=== PATIENT | male | born 1950 | race Caucasian/White ===

== ENCOUNTER 2021-11-12 13:28 | Emergency (ER) | payer MEDICARE ==
[2021-11-12 14:08] LABS: BASOPHIL 0.2 % (0-2); EOSINOPHIL 0 % (0-7); HCT 45.9 % (42.0-52.0); HGB 15.6 g/dl (13.2-18.0); LYMPHOCYTE 4.3 % (15-48); MCH 28.9 pg (25.0-31.0); MCV 85.2 fL (78.0-100.0); MONOCYTE 10.8 % (0-12); MPV 9.3 fL (6.0-9.5); NEUTROPHIL 84.3 % (41-80); NRBC 0; PLT 465 K/uL (150-400); RBC 5.39 M/uL (4.70-6.00); RDW 13.9 % (11.5-14.0)
[2021-11-12 14:17] LABS: ALBUMIN 2.9 g/dL (3.4-5.0); BILIRUBIN - TOTAL 2.8 mg/dL (0.2-1.0); BUN/CREAT RATIO (CALC) 8.3 RATIO; CREATININE 2.04 mg/dL (0.67-1.17); GLOBULIN (CALCULATION) 4.1 g/dL; POTASSIUM 5.5 mmol/L (3.5-5.1)
[2021-11-12 15:46] LABS: CORONAVIRUS 2019 SARS-COV-2 NEGATIVE (NEGATIVE); INFLUENZA A NAA NEGATIVE (NEGATIVE)
[2021-11-12 16:02] LABS: INR 1.08 (0.9-1.2); PROTHROMBIN TIME 13.7 SECONDS (11.9-13.9)
== END 2021-11-12 19:45 | disposition other institution (70) ==
LOC: FER 13:28
PROVIDERS: Emergency Medicine; Student in an Organized Health Care Education/Training Program
DX: K63.1 Perforation of intestine (nontraumatic) (principal); K59.00 Constipation, unspecified; I10 Essential (primary) hypertension; E11.9 Type 2 diabetes mellitus without complications; F17.210 Nicotine dependence, cigarettes, uncomplicated; Z79.84 Long term (current) use of oral hypoglycemic drugs; Z79.01 Long term (current) use of anticoagulants; Z79.899 Other long term (current) drug therapy; Z79.02 Long term (current) use of antithrombotics/antiplatelets; Z20.822 Contact with and (suspected) exposure to COVID-19; Z28.311 Partially vaccinated for COVID-19
CPT/HCPCS: 36415; 80053; 82150; 83605; 83690; 83880; 84484; 85025; 85610; 87040; 93005; C9113; J1170; J2270; J2405; J2543; J7030; U0002